=== PATIENT | male | born 1945 | race Caucasian/White ===

== ENCOUNTER 2020-05-04 17:11 | Emergency (ER) | payer MEDICARE, OTHER ==
[~2020-05-04] VITALS: Ht 177.8 cm; Wt 85.0 kg
[2020-05-04 17:14] VITALS: BP 121/82
[2020-05-04] MEDS ORDERED: DIPH,PERTUSS(ACELL),TET VAC/PF 0.5 ML IM-VACC ONE ×2 (17:30→18:28)
[2020-05-04] MEDS ORDERED: LIDOCAINE-MPF 1%, 5ML INFIL ONE (17:30)
[2020-05-04] MEDS ORDERED: LIDOCAINE-MPF 1%, 5ML ONE (17:34)
== END 2020-05-04 19:16 | disposition home or self-care (01) ==
LOC: ED 17:45
DX: S61.212A Laceration without foreign body of right middle finger without damage to nail, initial encounter (principal); J45.909 Unspecified asthma, uncomplicated; W26.0XXA Contact with knife, initial encounter; Y93.89 Activity, other specified; Y92.009 Unspecified place in unspecified non-institutional (private) residence as the place of occurrence of the external cause; Y99.8 Other external cause status
CPT/HCPCS: 12001; 90471; 90715; 99283